=== PATIENT | male | born 1960 | race Caucasian/White ===

== ENCOUNTER 2020-04-09 18:00 | Emergency (ER) | payer OTHER ==
[~2020-04-09 18:00] MED LIST: AMBI5TAB PO; EFFE75CA2 PO; MOTR200T44 PO; MULT1TAB8 PO; POTA540T PO; VITA100067 PO; [UNRECOGNIZED DRUG - REMARK]
== END 2020-04-09 20:46 | disposition home or self-care (01) ==
LOC: M ED 18:00
DX: S61.210A Laceration without foreign body of right index finger without damage to nail, initial encounter (principal); W26.8XXA Contact with other sharp object(s), not elsewhere classified, initial encounter; Y92.090 Kitchen in other non-institutional residence as the place of occurrence of the external cause; K57.90 Diverticulosis of intestine, part unspecified, without perforation or abscess without bleeding; Z79.899 Other long term (current) drug therapy

== ENCOUNTER 2020-05-05 09:13 | Day surgery (SDC) | payer OTHER ==
[~2020-05-05] VITALS: Ht 180.3 cm; Wt 84.1 kg
[2020-05-05] MEDS ORDERED: MORPHINE 4 MG/ML 1ML VIAL/SYRINGE (J2270) IV ONE ×2 (09:30→10:00)
[2020-05-05] MEDS ORDERED: ONDANSETRON 4MG/2ML VIAL IV ONE (09:30)
[2020-05-05] MEDS ORDERED: ceFAZolin SOD 2 GM in IV 1 EA IV ONE ×2 (09:30→13:00)
[2020-05-05] MEDS ORDERED: NS 1,000 ML IV ONE (09:30)
--- NOTE | 2020-05-05 09:59 | REPVR ---
PROCEDURE INFORMATION: Exam: XR Left Hand Exam date and time: 05/05/2020 9:20 AM Age: 59 years old Clinical indication: Injury or trauma; Injury history: Table saw; Initial encounter; Amputation, traumatic; Hand; Left; Additional info: Digital amputation/trauma TECHNIQUE: Imaging protocol: XR Left hand. Views: 3 or more views. COMPARISON: None provided. FINDINGS: Bones/joints: The 1st finger has been amputated from the level of the mid shaft of the distal phalanx. Comminuted fracture is present at the base of the 2nd middle phalanx, which is anteriorly dislocated in relation to the proximal phalanx. The head of the 2nd proximal phalanx appears to be exposed to the skin, and is unclear whether there has been any osseous amputation of its distal-most aspect and/or of the base of the 2nd middle phalanx. Rounded metallic radiodensity at the 1st carpometacarpal joint is probably predating the trauma. There are degenerative changes at this joint. Soft tissues: In addition to the above changes of amputation, there is soft tissue swelling of the soft tissues over the 1st metacarpal, where there appears to be a 3 mm irregular foreign body radial to the metacarpal. IMPRESSION: 1. Amputation of the 1st finger from the level of the mid shaft of the distal phalanx. 2. Comminuted fracture at the base of the 2nd middle phalanx with anterior dislocation of the proximal interphalangeal joint. Apparent exposure of the 2nd proximal phalangeal head to the skin, unclear if any osseous amputation of its distal-most aspect and/or of the base of the 2nd middle phalanx. 3. Soft tissue swelling of the 1st metacarpal with an apparent irregular 3 mm foreign body. 4. Degenerative changes at the 1st carpometacarpal joint where a rounded metallic radiodensity is probably predating the trauma. Electronically signed by: Micheal Page On 05/05/2020 09:59:14 AM
[2020-05-05 10:03] LABS: BASO # 0.1 10^3/uL (0.0-0.2); BASO % 0.9 % (0.0-1.0); EOS # 0.2 10^3/uL (0.0-0.5); EOS % 2.6 % (0.0-3.0); HEMATOCRIT 45.1 % (42.0-52.0); HEMOGLOBIN 15.1 g/dl (13.5-17.5); LYMPH # 2.1 10^3/uL (1.5-5.0); LYMPH % 32.4 % (24.0-44.0); MEAN CORPUSCULAR HEMOGLOBIN 29.2 pg (27.0-33.0); MEAN CORPUSCULAR HGB CONC 33.5 g/dl (32.0-36.5); MEAN CORPUSCULAR VOLUME 87.2 fl (80.0-96.0); MONO # 0.7 10^3/uL (0.0-0.8); MONO % 10.7 % (0.0-5.0); NEUTROPHILS # 3.5 10^3/uL (1.5-8.5); NEUTROPHILS % 53.2 % (36.0-66.0); PLATELET COUNT, AUTOMATED 255 10^3/uL (150-450); RED BLOOD COUNT 5.17 10^6/uL (4.30-6.10); WHITE BLOOD COUNT 6.5 10^3/uL (4.0-10.0)
[2020-05-05 10:21] LABS: INR 0.94; PROTHROMBIN TIME 12.8 SECONDS (11.8-14.0)
[2020-05-05 10:22] LABS: PARTIAL THROMBOPLASTIN TIME 28.4 SECONDS (25.0-38.4)
[2020-05-05 10:25] LABS: BLOOD UREA NITROGEN 9 MG/DL (7-18); CALCIUM LEVEL 9.2 MG/DL (8.8-10.2); CARBON DIOXIDE LEVEL 23 MEQ/L (21-32); CHLORIDE LEVEL 106 MEQ/L (98-107); CREATININE FOR GFR 0.89 MG/DL (0.70-1.30); GLOMERULAR FILTRATION RATE > 60.0 (>49); GLUCOSE, FASTING 108 MG/DL (70-100); POTASSIUM SERUM 3.8 MEQ/L (3.5-5.1); SODIUM LEVEL 137 MEQ/L (136-145)
--- NOTE | 2020-05-05 11:12 | REPVR ---
PROCEDURE INFORMATION: Exam: XR Left Finger(s) Exam date and time: 05/05/2020 11:02 AM Age: 59 years old Clinical indication: Injury or trauma; Injury history: Laceration; Initial encounter; Left; Index finger; Additional info: Index finger injury TECHNIQUE: Imaging protocol: XR Left fingers. Views: Minimum 2 views. COMPARISON: CR Hand, complete LEFT 05/05/2020 9:28 AM FINDINGS: Bones/joints: Redemonstrated is evidence of posttraumatic amputation of the 1st finger from the level of the mid aspect of the distal phalanx. There appears to have been some interval soft tissue and possibly osseous debridement. There is also again acute comminuted fracture at the base of the 2nd middle phalanx, which is again anteriorly subluxed in relation to the proximal phalanx. The area is better visualized, and there has been no clear osseous amputation. There is again a rounded metallic density at the 1st carpometacarpal joint, with degenerative change here. Soft tissues: Previously suggested radiodensity in the soft tissues radial to the 1st metacarpal is no longer evident. There has been partial amputation of the soft tissues over the dorsal aspect of the 2nd finger at the level of the proximal interphalangeal joint. Multiple radiodensities in the region could represent posttraumatic foreign bodies and/or bandage material. IMPRESSION: Posttraumatic hand with probable interval debridement since earlier the same day. Electronically signed by: Micheal Page On 05/05/2020 11:11:30 AM
[2020-05-05] MEDS ORDERED: HYDROMORPHONE HCL 0.5 MG/ 0.5 ML SYRINGE (J1170 PER 1) IV PRN ×2 (11:15→14:45)
[2020-05-05] MEDS ORDERED: D31000TA2 PO (11:30)
[2020-05-05] MEDS ORDERED: COLE1TAB PO (11:30)
[2020-05-05] MEDS ORDERED: POTA10TA17 PO (11:30)
[2020-05-05] MEDS ORDERED: PANT-23 PO (11:30)
[2020-05-05] MEDS ORDERED: PERCOCET 5MG/325MG TAB As Ordered ONE (12:48)
[2020-05-05] MEDS ORDERED: MIDAZOLAM INJ 2MG/2ML VIAL (J2250 PER 1MG) As Ordered ONE (12:57)
[2020-05-05] MEDS ORDERED: propofoL 200 MG/20 ML VIAL As Ordered ONE (12:57)
[2020-05-05] MEDS ORDERED: LIDOCAINE 2% 100MG/5ML SDV (FOR ANES.) As Ordered ONE (12:58)
[2020-05-05] MEDS ORDERED: fentaNYL 100 MCG/2 ML INJECTION (J3010) As Ordered ONE ×2 (12:58→14:28)
[2020-05-05] MEDS ORDERED: ONDANSETRON 4MG/2ML VIAL As Ordered ONE (12:58)
[2020-05-05] MEDS ORDERED: dexameTHASONE 4 MG/ML 1ML VIAL (J1100 PER 1MG) As Ordered ONE (12:58)
[2020-05-05] MEDS ORDERED: CelecoXIB 400 MG CAP PO ONE ×2 (13:00→14:45)
[2020-05-05] MEDS ORDERED: PERCOCET 5MG/325MG TAB PO ONE (13:00)
[2020-05-05] MEDS ORDERED: PREGABALIN 50 MG CAP (LYRICA) PO ONE ×2 (13:00→14:45)
[2020-05-05] MEDS ORDERED: ceFAZolin 2 GM/D5W 50 ML IV BAG (J0690 PER 500MG) As Ordered ONE (13:02)
[2020-05-05] MEDS ORDERED: BUPIVACAINE/EPIN 0.25% 30 ML VIAL As Ordered ONE (13:02)
[2020-05-05] MEDS ORDERED: ceFAZolin 1GM VIAL (J0690 PER 500MG) As Ordered ONE (13:02)
[2020-05-05] MEDS ORDERED: ACETAMINOPHEN 1000MG 100ML IV BTL (OFIRMEV) (J0131 PER 10MG) As Ordered ONE (13:25)
[2020-05-05] MEDS ORDERED: KETOROLAC 60MG 2ML VIAL As Ordered ONE (13:29)
[2020-05-05] MEDS ORDERED: ePHEDrine SULFATE 25 MG/5 ML(5MG/ML) SYRINGE As Ordered ONE (13:31)
[2020-05-05] MEDS ORDERED: METOCLOPRAMIDE INJ 10MG/2ML VIAL (J2765 PER 1) As Ordered ONE (14:17)
[2020-05-05] MEDS ORDERED: oxyCODONE 5MG TAB As Ordered ONE (14:28)
[2020-05-05] MEDS: fentaNYL 100 MCG/2 ML INJECTION (J3010) IV PRN ×2 (14:30→14:36)
[2020-05-05 14:45] VITALS: BP 129/73
[2020-05-05] MEDS ORDERED: MORPHINE 2 MG/ML 1ML VIAL (J2270) IV PRN (14:45)
[2020-05-05] MEDS ORDERED: PERCOCET 5MG/325MG TAB PO PRN ×2 (14:45)
[2020-05-05] MEDS ORDERED: LR 1,000 ML IV SCH ×2 (14:45)
[2020-05-05] MEDS ORDERED: METOCLOPRAMIDE INJ 10MG/2ML VIAL (J2765 PER 1) IV PRN (14:45)
[2020-05-05] MEDS ORDERED: PROMETHAZINE INJ 25 MG/ML VIAL (J2550) IV PRN (14:45)
[2020-05-05] MEDS ORDERED: oxyCODONE 5MG TAB PO PRN (14:45)
[2020-05-05] MEDS ORDERED: ONDANSETRON 4MG/2ML VIAL IV PRN (14:45)
[2020-05-05] MEDS ORDERED: KEFL500C17 PO (15:05)
[2020-05-05] MEDS ORDERED: NAPR-837 PO (15:05)
--- NOTE | 2020-05-07 18:00 | ER ---
DATE OF CONSULTATION: 05/05/2020 CHIEF COMPLAINT: Left hand/fingers versus band saw. HISTORY OF PRESENT ILLNESS: This is a 59-year-old male who was operating a band saw this morning, last meal last night. His left nondominant upper extremity encountered the moving blade of the band saw and he sustained an injury. He had deformity and bleeding and was seen in the ER for further evaluation. X-rays revealed an amputation of the thumb and near amputation of the index finger with obliteration of the proximal interphalangeal joint. Orthopedics was consulted. MEDICAL HISTORY: Includes diverticulitis and gastroesophageal reflux. SURGICAL HISTORY: Includes bowel resection; thumb CMC arthroplasty in 2001 with Orthosphere on that left side. SOCIAL HISTORY: Does not smoke, not drinking today. Lives locally. Employed by [employer]. ALLERGIES: NO KNOWN DRUG ALLERGIES. REVIEW OF SYSTEMS: He is only complaining of left hand injury. 12 areas other than that are negative. PHYSICAL EXAMINATION: He is alert, oriented and cooperative. Mood and affect are appropriate. He appears to be his stated vintage with healthy skin, face, upper and lower extremities except for the left hand. He is not short of breath, no cough or evidence of respiratory tract infection. The abdomen is soft, not distended, no obesity. The left upper extremity he has injury which is near circumferential through the proximal interphalangeal although the tuft of the index finger is still pink with some elements of reported sensation, certainly cannot move it. Thumb: Oblique laceration extends through the pulp and nika the thumbnail and nailbed off and extends towards the base of the phalanx dorsal aspect. Palpable pulse. Other fingers appear to be uninvolved. IMPRESSION: Near amputation of the index finger; distal tuft amputation of the thumb. RECOMMENDATIONS: I talked frankly with the patient about management of this issue. We talked about proximal interphalangeal joint fusion. We talked about second opinions with a hand surgeon and in fact I reached out to [facility] and discussed the case with Dr. Tez Aly a hand surgeon. The conclusion is that the patient could expect quicker recovery and likely a better level of function with an amputation through the PIP joint. Also revision of the thumb amputation. I explained the concept of secondary closure, to some degree there will some secondary closure here of both wounds. The patient elects for amputation through the PIP joint of the index finger and revision of the thumb amputation. We completed the preoperative pack including short form H&P and has been sent back and I coordinated with the ER personnel as well as the OR personnel and anesthesia. Because he is NPO we will go promptly. JEFFREY
--- NOTE | 2020-05-12 12:30 | RO ---
DATE OF OPERATION: 05/05/2020 PREOPERATIVE DIAGNOSIS: Traumatic partial amputation through the proximal interphalangeal joint of the index finger and near amputation through the distal phalanx of the thumb. POSTOPERATIVE DIAGNOSIS: Traumatic partial amputation through the proximal interphalangeal joint of the index finger and near amputation through the distal phalanx of the thumb. PROCEDURE: Amputation through the proximal interphalangeal joint of index finger with direct closure and amputation through the distal interphalangeal joint of the thumb with direct closure. SURGEON: Torres Maurer MD MARKETING OPERATIONS MANAGER: ANESTHESIA: Dr. Marley ESTIMATED BLOOD LOSS: Less than 15 mL. No tourniquet inflated. INDICATIONS: Thumb and index finger versus band saw; patient elects for operative intervention. Consent reviewed in detail including a rachna discussion of the pathology involved, procedure performed, alternatives including doing nothing or opinions of a hand sub-specialist. The patient agrees to this surgery. OPERATIVE COURSE: Identified in the holding area. Site and side verified. Brought to the operating room. Once anesthesia was administered, timeout was accomplished. Prepped and draped in the usual fashion. Next, I irrigated and cleansed the wounds using saline solution and a 4x4 sponge. Next, once this was accomplished, I freshened the wound edges at the thumb and at the index finger, I appreciated that the laceration was near circumferential. I completed the near circumferential laceration. I cut through the flexor tendon, which was still intact. I observed one digital nerve and implemented a neurectomy there. I ronguered back the condyles of the proximal phalanx to allow some approximation. Next, I reapproximated the volar flap across the condyles and was able to loosely reapproximate. This was accomplished with 3-0 nylon. Next, at the thumb I did debride back the exposed tip of the phalanx using Gavin-Rapp's. I was then able to reapproximate partially the tissue on the thumb. I was not able to completely close and some will need to be closing by secondary intent. Next, an irrigation was accomplished. Wounds were dressed with adaptic, 4x4s, Aure and Kerlix. The patient was extubated, moved to the recovery room in good condition. Of note, the patient received cephalosporin antibiotics prior to the surgery. JEFFREY
== END 2020-05-05 15:25 | disposition home or self-care (01) ==
LOC: M ED 09:13 → M SDC 11:31
PROVIDERS: ATTEND Orthopaedic Surgery
DX: S68.52 Partial traumatic transphalangeal amputation of thumb (principal); S68.621A Partial traumatic transphalangeal amputation of left index finger, initial encounter; W31.2XXA Contact with powered woodworking and forming machines, initial encounter; Y92.89 Other specified places as the place of occurrence of the external cause; Y93.9 Activity, unspecified; Y99.9 Unspecified external cause status; K21.9 Gastro-esophageal reflux disease without esophagitis; K57.92 Diverticulitis of intestine, part unspecified, without perforation or abscess without bleeding; I10 Essential (primary) hypertension; Z87.891 Personal history of nicotine dependence; Z79.899 Other long term (current) drug therapy
CPT/HCPCS: 26951; 73130; 73140; 80048; 85025; 85610; 85730; 86850; 86900; 86901; 88305; 96361; 96365; 96375; 96376; 99284; J0131; J0690; J1100; J1170; J1885; J2250; J2270; J2405; J2765; J3010; U0002

== ENCOUNTER 2020-09-12 09:54 | Emergency (ER) | payer OTHER ==
[~2020-09-12] VITALS: Ht 180.3 cm; Wt 86.6 kg
[~2020-09-12 09:54] MED LIST changes: +COLE1TAB PO; +D31000TA2 PO; +KEFL500C17 PO; +NAPR-837 PO; +PANT-23 PO; +POTA10TA17 PO
--- OUTSIDE RECORDS SUMMARY | 2020-09-12 10:00 | CCD | Continuity of Care Document ---
Author Author Abdirashid WRIGHT MD Organization Unknown Address [address] [place] [address] Phone [phone] Care Team Providers Care Air Pollution Analyst Name Role Phone Noble Plaza MD [facility] [phone] Problems Description No Information Available Social History Type Date Description Comments Sex Unknown Tobacco Use Start: Unknown Denies Smoking Allergies, Adverse Reactions, Alerts Description No Known Drug Allergies Medications Active Medications SIG Qnty Indications Ordering Provide r Date Omeprazole 20mg Capsules DR Silva History Medications Gabapentin 100mg Capsules 1-2 by mouth three times a day 90caps S68.522D Torres Wright MD 05/19/2020 - 07/29/2020 Naproxen 500mg Tablets 1 by mouth twice a day 60tabs Torers Wright MD 05/19/2020 - 07/29/2020 Hydrocodone-Acetaminophen 5-325mg Tablets 1-2 tabs by mouth every 4 to 6 hours as needed 30tabs Handy Wright MD 05/14/2020 - 05/25/2020 No Active Medications Unknown 05/2020 - 05/14/2020 Immunizations Description No Information Available Vital Signs Date Vital Result Comment 06/16/2020 3:15pm Body Temperature 97.1 F Results Test Acquired Date Facility Test Result H/L Range Note Laboratory test finding 05/05/2020 [facility] [address] [place] [address] (315)- - Pathology Request For Service (SEE NOTE) 1 Laboratory test finding 05/05/2020 [facility] [address] [place] [address] (315)- - Sars Covid-19 Amplification NEGATIVE Normal Negative 2 1 FINAL DIAGNOSIS Submitted as "portion of left index finger and thumb", amputation: Benign skin and soft tissue. Bone with degenerative changes. Negative for malignancy 05/07/2020 - 1540 CLINICAL DIAGNOSIS Partial amputation of left index distal phalanx and thumb 05/06/2020 - 1512 GROSS DIAGNOSIS Received in formalin labeled "portion of left index finger and thumb" consists of fragments of thumb and fragments of tissue measuring 6.5 x 2.5 x 2 cm. Technical Sales Manager sections are submitted in two after decalcification. -OA 05/07/2020 - 1534 Signed CECILE BRANTLEY MD 05/07/2020 1540 2 A false negative result may occur if a specimen is improperly collected, transported or handled. False negative results may also occur if inadequate numbers of organisms are present in the specimen. As with any molecular test, mutations within the target regions of [employer] SARS-CoV-2 could affect primer and/or probe binding resulting in failure to detect the presence of virus. This test cannot rule out diseases caused by other bacterial or viral pathogens. DISCLAIMER: Testing was performed using the [employer] SARS-CoV-2 test. This test was developed and its performance characteristics determined by [employer]. This test has not been FDA cleared or approved. This test has been authorized by FDA under an Emergency Use Authorization (EUA). This test is only authorized for the duration of time the declaration that circumstances exist justifying the authorization of the emergency use of in vitro diagnostic tests for detection of SARS-CoV-2 virus and/or diagnosis of COVID-19 infection under section 564(b)(1) of the Act, 21 U.S.C. 360bbb-3(b)(1), unless the authorization is terminated or revoked sooner. Procedures Date Code Description Status 05/05/2020 54575 Amputation Metacarpal Finger/Yuni mb Any JT Inc Neurectomies Completed 05/05/2020 82022 Amputation Metacarpal Finger/Yuni mb Any JT Inc Neurectomies Completed Medical Devices Description No Information Available Encounters Type Date Location Provider Dx Diagnosis Office Visit 06/16/2020 3:00p [place] Torres Wright MD 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, subs S68.621D Partial traumatic trnsphal a mputation of l idx fngr, subs Office Visit 05/26/2020 2:30p [place] Torres Wright MD 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, subs S68.621D Partial traumatic trnsphal a mputation of l idx fngr, subs Office Visit 05/19/2020 4:45p [place] Torres Wright MD 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, subs S68.621D Partial traumatic trnsphal a mputation of l idx fngr, subs Office Visit 05/14/2020 10:30a [place] Ritika Nam PA-C S6 8.522D Partial traumatic trnsphal amputation of left thumb, subs S68.621D Partial traumatic trnsphal a mputation of l idx fngr, subs Office Visit 05/08/2020 4:00p [place] Torres Wright MD 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, subs S68.621D Partial traumatic trnsphal a mputation of l idx fngr, subs Assessments Date Code Description Provider 07/30/2020 S68.522D Partial traumatic tr ansphalangeal amputation of left thumb, subsequent encounter Torres Wright MD 07/30/2020 S68.621D Partial traumatic tr ansphalangeal amputation of left index finger, subsequent encounter Torres Wright MD 06/16/2020 S68.522D Partial traumatic tr ansphalangeal amputation of left thumb, subsequent encounter Torres Wright MD 06/16/2020 S68.621D Partial traumatic tr ansphalangeal amputation of left index finger, subsequent encounter Torres Wright MD 05/26/2020 S68.522D Partial traumatic tr ansphalangeal amputation of left thumb, subsequent encounter Torres Wright MD 05/26/2020 S68.621D Partial traumatic tr ansphalangeal amputation of left index finger, subsequent encounter Torres Wright MD 05/19/2020 S68.522D Partial traumatic tr ansphalangeal amputation of left thumb, subsequent encounter Torres Wright MD 05/19/2020 S68.621D Partial traumatic tr ansphalangeal amputation of left index finger, subsequent encounter Torres Wright MD 05/14/2020 S68.522D Partial traumatic tr ansphalangeal amputation of left thumb, subsequent encounter Ritika Nam PA-C 05/14/2020 S68.621D Partial traumatic tr ansphalangeal amputation of left index finger, subsequent encounter Ritika Nam PA-C 05/08/2020 S68.522D Partial traumatic tr ansphalangeal amputation of left thumb, subsequent encounter Torres Wright MD 05/08/2020 S68.621D Partial traumatic tr ansphalangeal amputation of left index finger, subsequent encounter Torres Wrgiht MD 05/05/2020 S68.522A Partial traumatic tr ansphalangeal amputation of left thumb, initial encounter Torres Wright MD 05/05/2020 S68.621A Partial traumatic tr ansphalangeal amputation of left index finger, initial encounter Torres Wright MD Plan of Treatment 07/30/2020 - Torres Wright MD* S68.522D Partial traumatic transphalangeal amputation of left thumb, subsequent encounter* New Orders:* Surgery, Ordered: 07/30/20 * Follow up:* post op with a PA per [facility] * S68.621D Partial traumatic transphalangeal amputation of left index finger, subsequent encounter Functional Status Description No Information Available Mental Status Description No Information Available Referrals Description No Information Available
--- OUTSIDE RECORDS SUMMARY | 2020-09-12 10:00 | CCD | Continuity of Care Document ---
Author Author Abdirashid WRIGHT MD Organization Unknown Address [address] [place] [address] Phone [phone] Care Team Providers Care Store Cashier Name Role Phone Noble Plaza MD [facility] [phone] Problems Description No Information Available Social History Type Date Description Comments Sex Unknown Tobacco Use Start: Unknown Denies Smoking Allergies, Adverse Reactions, Alerts Description No Known Drug Allergies Medications Active Medications SIG Qnty Indications Ordering Provide r Date Gabapentin 100mg Capsules 1-2 by mouth three times a day 90caps S68.522D Torres Wright MD 05/19/2020 Naproxen 500mg Tablets 1 by mouth twice a day 60tabs Torres Wright MD 05/19/2020 History Medications Hydrocodone-Acetaminophen 5-325mg Tablets 1-2 tabs by mouth every 4 to 6 hours as needed 30tabs B aniya Wright MD 05/14/2020 - 05/25/2020 No Active Medications Unknown 05/2020 - 05/14/2020 Immunizations Description No Information Available Vital Signs Date Vital Result Comment 06/16/2020 3:15pm Body Temperature 97.1 F Results Test Acquired Date Facility Test Result H/L Range Note Laboratory test finding 05/05/2020 [facility] [address] [place] [address] (315)- - Pathology Request For Service (SEE NOTE) 1 Laboratory test finding 05/05/2020 [facility] [address] [place] [address] (315)- - Sars Covid-19 Amplification NEGATIVE Normal [...] measuring 6.5 x 2.5 x 2 cm. Recovery Engineer sections are submitted in two after decalcification. [...] pathogens. DISCLAIMER: Testing was performed using the [employer] SARS-CoV-2 test. This test was developed and its performance characteristics determined by [employer]. This test has not been FDA cleared [...] sooner. Procedures Date Code Description Status 05/05/2020 32197 Amputation Metacarpal Finger/Yuni mb Any JT Inc Neurectomies Completed 05/05/2020 70386 Amputation Metacarpal Finger/Yuni mb Any JT Inc Neurectomies Completed Medical Devices Description No Information Available Encounters Type Date Location Provider Dx Diagnosis Office Visit 05/26/2020 2:30p [place] Wright MD 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, subs S68.621D Partial traumatic trnsphal a mputation of l idx fngr, subs Office Visit 05/19/2020 4:45p [place] MD 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, subs S68.621D Partial traumatic trnsphal a mputation of l idx fngr, subs Office Visit 05/14/2020 10:30a [place] Ritika Nam PA-C S6 8.522D Partial traumatic trnsphal amputation of left thumb, subs S68.621D Partial traumatic trnsphal a mputation of l idx fngr, subs Office Visit 05/08/2020 4:00p [place] Torres Wright MD 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, subs S68.621D Partial traumatic trnsphal a mputation of l idx fngr, subs Assessments Date Code Description Provider 06/16/2020 S68.522D Partial traumatic tr ansphalangeal amputation [...] index finger, subsequent encounter Torres Wright MD 05/05/2020 S68.522A Partial traumatic tr ansphalangeal amputation of left thumb, initial encounter Torres Wright MD 05/05/2020 S68.621A Partial traumatic tr ansphalangeal amputation of left index finger, initial encounter Torres Wright MD Plan of Treatment 06/16/2020 - Torres Wright MD* S68.522D Partial traumatic transphalangeal amputation of left thumb, subsequent encounter* Follow up:* prn * S68.621D Partial traumatic transphalangeal amputation of left index finger, subsequent encounter Functional Status Description No Information Available Mental Status Description No Information Available Referrals Description No Information Available
--- OUTSIDE RECORDS SUMMARY | 2020-09-12 10:00 | CCD | Continuity of Care Document ---
Author Author Abdirashid WRIGHT MD Organization Unknown Address [address] [place] [address] Phone [phone] Care Team Providers Care Program Paraprofessional Name Role Phone Noble Plaza MD [facility] [phone] Problems Description No Information Available Social History [...] H/L Range Note Laboratory test finding 05/05/2020 [facility] [address] [place] [address] (315)- - Pathology Request For Service (SEE NOTE) 1 Laboratory test finding 05/05/2020 [facility] [address] [place] [address] (315)- - Sars Covid-19 Amplification NEGATIVE Normal [...] measuring 6.5 x 2.5 x 2 cm. Pantry Chef sections are submitted in two after decalcification. [...] pathogens. DISCLAIMER: Testing was performed using the [employer] SARS-CoV-2 test. This test was developed and its performance characteristics determined by [employer]. This test has not been FDA cleared [...] sooner. Procedures Date Code Description Status 05/05/2020 16068 Amputation Metacarpal Finger/Yuni mb Any JT Inc Neurectomies Completed 05/05/2020 34991 Amputation Metacarpal Finger/Yuni mb Any JT Inc Neurectomies Completed Medical Devices Description No Information Available Encounters Type Date Location Provider Dx Diagnosis Office Visit 06/16/2020 3:00p [place] Wright MD 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, subs S68.621D Partial traumatic trnsphal a mputation of l idx fngr, subs Office Visit 05/26/2020 2:30p [place] Wright MD 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, subs S68.621D Partial traumatic trnsphal a mputation of l idx fngr, subs Office Visit 05/19/2020 4:45p [place] Wright MD 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, subs S68.621D Partial traumatic trnsphal a mputation of l idx fngr, subs Office Visit 05/14/2020 10:30a [place] Ritika Nam PA-C S6 8.522D Partial traumatic trnsphal amputation of left thumb, subs S68.621D Partial traumatic trnsphal a mputation of l idx fngr, subs Office Visit 05/08/2020 4:00p [place] Torrse Wright MD S68.522D Partial traumatic trnsphal amputation [...]
--- OUTSIDE RECORDS SUMMARY | 2020-09-12 10:00 | CCD | Continuity of Care Document ---
Author Author Abdirashid WRIGHT MD Organization Unknown Address [address] [place] [id number] Phone [phone] Care Team Providers Care Trust Operations Assistant Name Role Phone [place] MD [facility] [phone] Problems Description No Information Available Social History [...] a day 60tabs Torres Wright MD 05/19/2020 - 07/29/2020 Hydrocodone-Acetaminophen 5-325mg Tablets 1-2 tabs by mouth every 4 to 6 hours as needed 30tabs B aniya Wright MD 05/14/2020 - 05/25/2020 No Active Medications Unknown 05/2020 - 05/14/2020 Immunizations Description No Information Available Vital Signs Date Vital Result Comment 07/30/2020 10:09am Height 71 inches 5'11" Weight 185.00 lb BMI (Body Mass Index) 25.8 kg/m2 06/16/2020 3:15pm Body Temperature 97.1 F Results Test Acquired Date Facility Test Result H/L Range Note Laboratory test finding 05/05/2020 [facility] [address] [place] [address] [phone] Pathology Request For Service (SEE NOTE) 1 Laboratory test finding 05/05/2020 [facility] [address] [place] [address] [phone] - Sars Covid-19 Amplification NEGATIVE Normal [...] measuring 6.5 x 2.5 x 2 cm. Smokehouse Operator sections are submitted in two after decalcification. [...] pathogens. DISCLAIMER: Testing was performed using the [employer] SARS-CoV-2 test. This test was developed and its performance characteristics determined by [employer]. This test has not been FDA cleared [...] sooner. 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, subs S68.621D Partial traumatic trnsphal a mputation of l idx fngr, subs Office Visit 05/26/2020 2:30p [place] Torres Wright MD 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, subs S68.621D Partial traumatic trnsphal a mputation of l idx fngr, subs Office Visit 05/19/2020 4:45p [place] Torres Wright MD 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, subs S68.621D Partial traumatic trnsphal a mputation of l idx fngr, subs Office Visit 05/14/2020 10:30a [place] Ritika Nam PA-C S6 8.522D Partial traumatic trnsphal amputation of left thumb, subs S68.621D Partial traumatic trnsphal a mputation of l idx fngr, subs Office Visit 05/08/2020 4:00p [place] Torres Wright MD 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
--- OUTSIDE RECORDS SUMMARY | 2020-09-12 10:00 | CCD ---
Author Author [facility] Organization [facility] Address Unknown Phone Unavailable Care Team Providers Care Emergency Registrar Name Role Phone Valerie Nam PA Unavailable Unavailable Nam, M Barratt PA Unavailable Unavailable Nam, M Barratt PA Unavailable Unavailable Nam, M Barratt PA Unavailable Unavailable Nam, M Barratt PA Unavailable Unavailable Nam, M Barratt PA Unavailable Unavailable Nam, M Barratt PA Unavailable Unavailable Nam, M Barratt PA Unavailable Unavailable Nam, M Barratt PA Unavailable Unavailable Nam, M Barratt PA Unavailable Unavailable Nam, M Barratt PA Unavailable Unavailable Nam, M Barratt PA Unavailable Unavailable Nam, M Barratt PA Unavailable Unavailable Nam, M Barratt PA Unavailable Unavailable Nam, M Barratt PA Unavailable Unavailable Nam, M Barratt PA Unavailable Unavailable Nam, M Barratt PA Unavailable Unavailable Nam, M Barratt PA Unavailable Unavailable Nam, M Barratt PA Unavailable Unavailable Nam, M Barratt PA Unavailable Unavailable Nam, M Barratt PA Unavailable Unavailable Nam, M Barratt PA Unavailable Unavailable Nam, M Barratt PA Unavailable Unavailable Nam, M Barratt PA Unavailable Unavailable Nam, M Barratt PA Unavailable Unavailable Nam, M Barratt PA Unavailable Unavailable Goldie Maurer MD Unavailable Unavailable Goldie Maurer MD Unavailable Unavailable Goldie Maurer MD Unavailable Unavailable Goldie Maurer MD Unavailable Unavailable Goldie Maurer MD Unavailable Unavailable Goldie Maurer MD Unavailable Unavailable Goldie Maurer MD Unavailable Unavailable Glodie Maurer MD Unavailable Unavailable Goldie Maurer MD Unavailable Unavailable Goldie Maurer MD Unavailable Unavailable Goldie Maurer MD Unavailable Unavailable Goldie Maurer MD Unavailable Unavailable Goldie Maurer MD Unavailable Unavailable Goldie Maurer MD Unavailable Unavailable Maurer, L Torres MD Unavailable Unavailable Maurer, L Torres MD Unavailable Unavailable Maurer, L Torres MD Unavailable Unavailable Maurer, L Torres MD Unavailable Unavailable Maurer, L Torres MD Unavailable Unavailable Maurer, L Torres MD Unavailable Unavailable Maurer, L Torres MD Unavailable Unavailable Maurer, L Torres MD Unavailable Unavailable Maurer, L Torres MD Unavailable Unavailable Maurer, L Torres MD Unavailable Unavailable Maurer, L Torres MD Unavailable Unavailable Maurer, L Torres MD Unavailable Unavailable Maurer, L Torres MD Unavailable Unavailable Maurer, L Torres MD Unavailable Unavailable Maurer, L Torres MD Unavailable Unavailable Maurer, L Torres MD Unavailable Unavailable Maurer, L Torres MD Unavailable Unavailable Maurer, L Torres MD Unavailable Unavailable Maurer, L Torres MD Unavailable Unavailable Maurer, L Torres MD Unavailable Unavailable Maurer, L Torres MD Unavailable Unavailable Maurer, L Torres MD Unavailable Unavailable Maurer, L Torres MD Unavailable Unavailable Maurer, L Torres MD Unavailable Unavailable Maurer, L Torres MD Unavailable Unavailable Maurer, L Torres MD Unavailable Unavailable Maurer, L Torres MD Unavailable Unavailable Maurer, L Torres MD Unavailable Unavailable Maurer, L Torres MD Unavailable Unavailable Maurer, L Torres MD Unavailable Unavailable Maurer, L Torres MD Unavailable Unavailable Maurer, L Torres MD Unavailable Unavailable Maurer, L Torres MD Unavailable Unavailable Re-disclosure Warning The records that you are about to access may contain information from federally-assisted alcohol or drug abuse programs. If such information is present, then the following federally mandated warning applies: This information has been disclosed to you from records protected by federal confidentiality rules (42 CFR part 2). The federal rules prohibit you from making any further disclosure of this information unless further disclosure is expressly permitted by the written consent of the person to whom it pertains or as otherwise permitted by 42 CFR part 2. A general authorization for the release of medical or other information is NOT sufficient for this purpose. The Federal rules restrict any use of the information to criminally investigate or prosecute any alcohol or drug abuse patient.The records that you are about to access may contain highly sensitive health information, the redisclosure of which is protected by Article 27-F of the [facility] Public Health law. If you continue you may have access to information: Regarding HIV / AIDS; Provided by facilities licensed or operated by the [facility] Office of Mental Health; or Provided by the [facility] Office for People With Developmental Disabilities. If such information is present, then the following [facility] mandated warning applies: This information has been disclosed to you from confidential records which are protected by state law. State law prohibits you from making any further disclosure of this information without the specific written consent of the person to whom it pertains, or as otherwise permitted by law. Any unauthorized further disclosure in violation of state law may result in a fine or half-way sentence or both. A general authorization for the release of medical or other information is NOT sufficient authorization for further disc losure. Family History Family Member Name Family Member Gender Family Member Status Date o f Status Description Data Source(s) Unknown Male Problem [facility] ([facility]) Encounters Encounter Providers Location Date Indications Data Source(s ) Office Visit Attender: Torres Maurer MD Physical Therapy 2019 08:00:00 AM EST [facility] ([facility]) Office Visit Attender: Torres Maurer MD Physical Therapy 2019 03:00:00 PM EDT [facility] ([facility]) Office Visit Attender: Torres Maurer MD Physical Therapy 2019 02:30:00 PM EDT [facility] ([facility]) Office Visit Attender: Torres Maurer MD Physical Therapy 2019 04:45:00 PM EDT [facility] ([facility]) Office Visit Attender: Ritika SINGH Physical Therapy 10:30:00 AM EDT [facility] ([facility]) Office Visit Attender: Torres Maurer MD Physical Therapy 2019 04:00:00 PM EDT [facility] ([facility]) Medications Medication Brand Name Start Date Product Form Dose Route Admi nistrative Instructions Pharmacy Instructions Status Indications Reaction Description Data Source(s) 100 mg 05/19/2020 12:00:00 AM EDT capsule 90 TAKE 1-2 CAPSULES BY MOUTH THREE TIMES A DAY MAXIMUM DAILY DOSE = 3 CAPSULES TAKE 1-2 CAPSULES BY MOUTH THREE TIMES A DAY MAXIMUM DAILY DOSE = 3 CAPSULES SOLD: 05/19/2020 [facility] gabapentin 100 MG Oral Capsule Gabapentin 05/19/2020 12:00:00 AM EDT ORAL completed [facility] ([facility] ) Naproxen 500 MG Oral Tablet Naproxen 05/19/2020 12:00:00 AM EDT ORAL completed [facility] ([facility]) Acetaminophen 325 MG / Hydrocodone Bitartrate 5 MG Ora l Tablet Hydrocodone-Acetaminophen 05/14/2020 12:00:00 AM EDT ORAL completed [facility] ([facility]) 5-325 mg 05/14/2020 12:00:00 AM EDT tablet 30 TAKE 1-2 TABLETS BY MOUTH EVERY 4-6 HOURS NEEDED MAXIMUM DAILY DOSE = 5 TAKE 1-2 TABLETS BY MOUTH EVERY 4-6 HOURS NEEDED MAXIMUM DAILY DOSE = 5 SOLD: 05/14/2020 [facility] No Active Medications 05/08/2020 12:00:00 AM EDT completed [facility] ([facility]) 500 mg 05/05/2020 12:00:00 AM EDT tablet 30 TAKE ONE TABLET BY MOUTH TWICE A DAY WITH FOOD TAKE ONE TABLET BY MOUTH TWICE A DAY WITH FOOD SOLD: 05/05/2020 [facility] Cephalexin 500 MG Oral Capsule CEPHALEXIN 05/05/2020 12:00:00 AM EDT capsule 20 TAKE ONE CAPSULE BY MOUTH FOUR TIMES A DAY FOR 5 DAYS TAKE ONE CAPSULE BY MOUTH FOUR TIMES A DAY FOR 5 DAYS SOLD: 05/05/2020 [facility] Insurance Providers Payer name Policy type / Coverage type Policy ID Covered republican ID Covered republican's relationship to mcmillan Policy Mcmillan Plan Information [facility] HUMANA [id number] SP [id number] HUMANA [facility] O [id number] S [id number] [facility] [id number] SP [id number] [facility] Health Maintenance Organization (HMO) [id number] Self [id number] [facility] [id number] S [id number] [facility] [id number] [facility] [id number] Surgeries/Procedures Procedure Description Date Indications Data Source(s) AMP F/TH 1/2 JT/PHALANX W/NEURECT W/DIR CLSR 0 12:00:00 AM EDT [facility] ([facility]) AMP F/TH 1/2 JT/PHALANX W/NEURECT W/DIR CLSR 0 12:00:00 AM EDT [facility] ([facility]) Results ID Date Data Source [id number] 05/05/2020 01:44:00 PM EDT [facility] ([facility]) Name Value Range Interpretation Code Description Data Ngozi rce(s) Supporting Document(s) Surgical pathology study Laboratory test result [facility] ([facility]) FINAL DIAGNOSIS Submitted as "portion of left [...] measuring 6.5 x 2.5 x 2 cm. Operations Intern sections are submitted in two after decalcification. -OA 05/07/2020 - 1534 Signed CECILE BRANTLEY MD 05/07/2020 1540 ID Date Data Source [id number] 05/05/2020 11:27:00 AM EDT [facility] ([facility]) Name Value Range Interpretation Code Description Data Ngozi rce(s) Supporting Document(s) Laboratory test finding (navigational concept) Laboratory test result [facility] A false negative result may occur if a s pecimen is improperly collected, transported or handled. False [...] pathogens. DISCLAIMER: Testing was performed using the [employer] SARS-CoV-2 test. This test was developed and its performance characteristics determined by [employer]. This test has not been FDA cleared [...] the authorization is terminated or revoked sooner. Procedure Vital Signs ID Date Data Source UNK Name Value Range Interpretation Code Description Data Source(s) Body mass index (BMI) [Ratio] 25.8 kg/m2 25.8 k g/m2 [facility] ([facility]) Body weight 185.00 [lb_av] 185.00 [lb_av] [facility] T ([facility]) Body height 71 [in_i] 71 [in_i] [facility] 5'11" Body temperature 97.1 [degF] 97.1 [degF] [facility] ([facility])
--- OUTSIDE RECORDS SUMMARY | 2020-09-12 10:34 | CCD ---
Author Author [facility] Organization [facility] Address Unknown Phone Unavailable Care Team Providers Care Aggregate Conveyor Operator Name Role Phone Valerie Nam PA Unavailable [...] is protected by Article 27-F of the [facility] Public Health law. If you continue you may have access to information: Regarding HIV / AIDS; Provided by facilities licensed or operated by the [facility] Office of Mental Health; or Provided by the [facility] Office for People With Developmental Disabilities. If such information is present, then the following [facility] mandated warning applies: This information has been [...] law may result in a fine or retirement sentence or both. A general authorization for the release of medical or other information is NOT sufficient authorization for further disc losure. Family History Family Member Name Family Member Gender Family Member Status Date o f Status Description Data Source(s) Unknown Male Problem [facility] ([facility]) Encounters Encounter Providers Location Date Indications Data Source(s ) Office Visit Attender: Torres Maurer MD Physical Therapy 2019 08:00:00 AM EST [facility] ([facility]) Office Visit Attender: Torres Maurer MD Physical Therapy 2019 03:00:00 PM EDT [facility] ([facility]) Office Visit Attender: Torrse Maurer MD Physical Therapy 2019 02:30:00 PM EDT [facility] ([facility]) Office Visit Attender: Torres Maurer MD Physical Therapy 2019 04:45:00 PM EDT [facility] ([facility]) Office Visit Attender: Ritika SINGH Physical Therapy 10:30:00 AM EDT [facility] ([facility]) Office Visit Attender: Torres Maurer MD Physical Therapy 2019 04:00:00 PM EDT [facility] ([facility]) Medications Medication Brand Name [...] 05/19/2020 12:00:00 AM EDT ORAL completed [facility] ([facility] ) Naproxen 500 MG Oral Tablet Naproxen 05/19/2020 12:00:00 AM EDT ORAL completed [facility] ([facility]) Acetaminophen 325 MG / Hydrocodone Bitartrate 5 MG Ora l Tablet Hydrocodone-Acetaminophen 05/14/2020 12:00:00 AM EDT ORAL completed [facility] ([facility]) 5-325 mg 05/14/2020 12:00:00 AM EDT tablet 30 TAKE 1-2 TABLETS BY MOUTH EVERY 4-6 HOURS NEEDED MAXIMUM DAILY DOSE = 5 TAKE 1-2 TABLETS BY MOUTH EVERY 4-6 HOURS NEEDED MAXIMUM DAILY DOSE = 5 SOLD: 05/14/2020 [facility] No Active Medications 05/08/2020 12:00:00 AM EDT completed [facility] ([facility]) 500 mg 05/05/2020 12:00:00 AM [...] A DAY FOR 5 DAYS SOLD: 05/05/2020 [facility] Insurance Providers Payer name Policy type / Coverage type Policy ID Covered constitution party ID Covered constitution party's relationship to mcmillan Policy Mcmillan Plan Information [facility] HUMANA [id number] SP [id number] HUMANA [facility] O [id number] S [id number] [facility] [id number] SP [id number] [facility] Health Maintenance Organization (HMO) [id number] Self [id number] [facility] [id number] S [id number] [facility] [id number] [facility] [id number] Surgeries/Procedures Procedure Description Date Indications Data Source(s) AMP F/TH 1/2 JT/PHALANX W/NEURECT W/DIR CLSR 0 12:00:00 AM EDT [facility] ([facility]) AMP F/TH 1/2 JT/PHALANX W/NEURECT W/DIR CLSR 0 12:00:00 AM EDT [facility] ([facility]) Results ID Date Data Source [id number] 05/05/2020 01:44:00 PM EDT [facility] ([facility]) Name Value Range Interpretation Code Description Data Ngozi rce(s) Supporting Document(s) Surgical pathology study Laboratory test result [facility] ([facility]) FINAL DIAGNOSIS Submitted as "portion of [...] measuring 6.5 x 2.5 x 2 cm. Clinical Services Specialist sections are submitted in two after decalcification. -OA 05/07/2020 - 1534 Signed CECILE BRANTLEY MD 05/07/2020 1540 ID Date Data Source [id number] 05/05/2020 11:27:00 AM EDT [facility] ([facility]) Name Value Range Interpretation Code Description Data Ngozi rce(s) Supporting Document(s) Laboratory test finding (navigational concept) Laboratory test result [facility] ([facility]) A false negative result may occur [...] pathogens. DISCLAIMER: Testing was performed using the [employer] SARS-CoV-2 test. This test was developed and its performance characteristics determined by [employer]. This test has not been FDA cleared [...] [Ratio] 25.8 kg/m2 25.8 k g/m2 [facility] ([facility]) Body weight 185.00 [lb_av] 185.00 [lb_av] ALLAEN T ([facility]) Body height 71 [in_i] 71 [in_i] [facility] ([facility]) 5'11" Body temperature 97.1 [degF] 97.1 [degF] [facility] ([facility])
[2020-09-12] MEDS ORDERED: LIDOCAINE W/EPINEPHRINE 1% 20ML VIAL SC ONE (11:00)
[2020-09-12 11:18] VITALS: BP 139/90
== END 2020-09-12 11:22 | disposition home or self-care (01) ==
LOC: M ED 09:54
DX: S51.812A Laceration without foreign body of left forearm, initial encounter (principal); W26.8XXA Contact with other sharp object(s), not elsewhere classified, initial encounter; Y92.018 Other place in single-family (private) house as the place of occurrence of the external cause; I10 Essential (primary) hypertension; Z87.09 Personal history of other diseases of the respiratory system; Z79.899 Other long term (current) drug therapy

== ENCOUNTER → 2020-09-22 | Outpatient (CLI) | payer OTHER ==
--- NOTE | 2020-09-22 09:29 | ECGEPIP ---
[facility] Test Date: 2020-09-22 Pat Name: MASON CABELLO Department: Room: - Gender: Male Senior Partner: RF : [id number] Requested By: Torres Amezcua Order Number: [id number] Reading MD: Edi Braxton Measurements Intervals [place] Rate: 76 P: 38 AK: 156 QRS: 27 QRSD: 88 T: 25 QT: 353 QTc: 399 Interpretive Statements Normal sinus rhythm LA conduction disturbance? Prominent precordial voltage Faster rate but improved repolarization appearance from 09/17/15. Electronically Signed on 09-22-2020 9:29:18 EST by Edi Braxton
== END ==
LOC: M EKG 08:37
PROVIDERS: ATTEND Orthopaedic Surgery
DX: Z01.810 Encounter for preprocedural cardiovascular examination (principal)

== ENCOUNTER 2022-06-14 07:47 | Day surgery (SDC) | payer OTHER ==
[~2022-06-14] VITALS: Ht 172.7 cm; Wt 87.0 kg
[~2022-06-14 07:47] MED LIST changes: +ATOR80TA59 PO; -D31000TA2 PO; +LISI20TA33 PO; +NS 1,000 ML IV ONE; +OMEG10002 PO; +POTA-150 PO; -POTA10TA17 PO; +VITA100093 PO
[2022-06-14] MEDS ORDERED: LIDOCAINE 2% 100MG/5ML SDV (FOR ANES.) As Ordered ONE (09:05)
[2022-06-14] MEDS ORDERED: propofoL 200 MG/20 ML VIAL As Ordered ONE (09:05)
[2022-06-14 09:30] VITALS: BP 110/63
== END 2022-06-14 09:39 | disposition home or self-care (01) ==
LOC: M OPP 07:47
PROVIDERS: ATTEND Internal Medicine Gastroenterology
DX: Z12.11 Encounter for screening for malignant neoplasm of colon (principal); K64.0 First degree hemorrhoids; K57.30 Diverticulosis of large intestine without perforation or abscess without bleeding; Z98.0 Intestinal bypass and anastomosis status; Z53.8 Procedure and treatment not carried out for other reasons; Z79.02 Long term (current) use of antithrombotics/antiplatelets; Z79.899 Other long term (current) drug therapy; E78.00 Pure hypercholesterolemia, unspecified; I10 Essential (primary) hypertension; F32.9 Major depressive disorder, single episode, unspecified; Z90.49 Acquired absence of other specified parts of digestive tract; Z87.19 Personal history of other diseases of the digestive system; Z98.84 Bariatric surgery status

== ENCOUNTER 2023-02-19 20:10 | Inpatient (IN) | payer OTHER ==
[~2023-02-19] VITALS: Ht 180.3 cm; Wt 84.7 kg
[~2023-02-19 20:10] MED LIST changes: -NS 1,000 ML IV ONE
[2023-02-19] MEDS ORDERED: MICR1TAB5 PO (20:21)
[2023-02-19] MEDS ORDERED: ONDANSETRON 4MG 2ML VIAL IV ONE (21:20)
[2023-02-19] MEDS ORDERED: NS 1,000 ML IV ONE (21:20)
[2023-02-19] MEDS ORDERED: MORPHINE 4 MG/ML 1ML VIAL IV ONE (21:20)
[2023-02-19 21:39] LABS: BASO % 0.4 % (0.0-1.0); EOS % 0.1 % (0.0-3.0); HEMATOCRIT 40.6 % (42.0-52.0); HEMOGLOBIN 13.7 g/dl (13.5-17.5); LYMPH # 0.7 10^3/uL (1.5-5.0); LYMPH % 8.1 % (24.0-44.0); MEAN CORPUSCULAR HEMOGLOBIN 28.9 pg (27.0-33.0); MEAN CORPUSCULAR HGB CONC 33.7 g/dl (32.0-36.5); MEAN CORPUSCULAR VOLUME 85.7 fl (80.0-96.0); MONO # 0.3 10^3/uL (0.0-0.8); MONO % 3.6 % (2.0-8.0); NEUTROPHILS # 7.1 10^3/uL (1.5-8.5); NEUTROPHILS % 87.7 % (36.0-66.0); PLATELET COUNT, AUTOMATED 208 10^3/uL (150-450); RED BLOOD COUNT 4.74 10^6/uL (4.30-6.10); WHITE BLOOD COUNT 8.1 10^3/uL (4.0-10.0)
[2023-02-19 22:07] LABS: ALBUMIN 4.4 G/DL (3.2-5.2); BILIRUBIN,DIRECT 0.4 MG/DL (<0.4); TOTAL PROTEIN 7.1 G/DL (5.7-8.2)
[2023-02-19] MEDS ORDERED: CIPROFLOXACIN 400 MG in IV 1 EA IV ONE (23:40)
[2023-02-19] MEDS ORDERED: metroNIDAZOLE 500 MG in IV 1 EA IV ONE (23:40)
[2023-02-19] MEDS ORDERED: B-12100010 PO (23:45)
[2023-02-19] MEDS ORDERED: HOME MED LIST COMPLETE! XX SCH (23:50)
[2023-02-19] MEDS ORDERED: HYDROMORPHONE HCL 0.5 MG/ 0.5 ML SYRINGE IV PRN ×2 (23:55)
[2023-02-20 00:04] VITALS: BP 134/73; TEMP 98.2; O2SAT 97
[2023-02-20 00:16] LABS: RSV AMPLIFICATION NEGATIVE (NEGATIVE)
[2023-02-20] MEDS ORDERED: hydrALAZINE 20MG/ML 1ML VIAL IV PRN (00:45)
[2023-02-20] MEDS: LR 1,000 ML IV SCH ×4 (01:24→23:55)
[2023-02-20 05:24] VITALS: BP 109/68; TEMP 98.1; O2SAT 96
[2023-02-20] MEDS: HEPARIN SOD (PORCINE) 5000UNITS/ML 1ML VIAL/SYRINGE SC SCH ×3 (05:36→21:49)
[2023-02-20 06:00] VITALS: BP 109/68
[2023-02-20 06:26] LABS: BLOOD UREA NITROGEN 9 MG/DL (9-23); CARBON DIOXIDE LEVEL 25 MMOL/L (20-31); CHLORIDE LEVEL 108 MMOL/L (98-107); CREATININE FOR GFR 0.64 MG/DL (0.70-1.30); GLOMERULAR FILTRATION RATE > 60.0 (>49); GLUCOSE, FASTING 87 MG/DL (74-106); POTASSIUM SERUM 3.9 MMOL/L (3.5-5.1); SODIUM LEVEL 139 MMOL/L (136-145)
[2023-02-20] MEDS: metroNIDAZOLE 500 MG in IV 1 EA IV SCH ×2 (09:51→16:24)
[2023-02-20] MEDS: PANTOPRAZOLE 40MG VIAL IV SCH (09:52)
[2023-02-20] MEDS: GASTROGRAFIN SOLUTION 30ML PO SCH ×2 (09:52→10:27)
[2023-02-20] MEDS ORDERED: ISOVUE-370 76% 100ML VIAL As Ordered ONE (10:46)
[2023-02-20] MEDS: CIPROFLOXACIN 400 MG in IV 1 EA IV SCH (13:50)
[2023-02-20 14:00] VITALS: BP 112/68; TEMP 98.6; O2SAT 96
[2023-02-20 14:46] LABS: HEMATOCRIT 35.5 % (42.0-52.0); HEMOGLOBIN 11.8 g/dl (13.5-17.5)
[2023-02-20 19:28] VITALS: BP 110/66; TEMP 98.8; O2SAT 95
[2023-02-21] MEDS: metroNIDAZOLE 500 MG in IV 1 EA IV SCH ×2 (02:11→08:06)
[2023-02-21] MEDS: CIPROFLOXACIN 400 MG in IV 1 EA IV SCH (03:14)
[2023-02-21 05:17] VITALS: BP 129/70; TEMP 98.1; O2SAT 97
[2023-02-21] MEDS: HEPARIN SOD (PORCINE) 5000UNITS/ML 1ML VIAL/SYRINGE SC SCH (05:38)
[2023-02-21 05:42] LABS: HEMOGLOBIN 11.8 g/dl (13.5-17.5); MEAN CORPUSCULAR HEMOGLOBIN 29.4 pg (27.0-33.0); MEAN CORPUSCULAR HGB CONC 33.7 g/dl (32.0-36.5); MEAN CORPUSCULAR VOLUME 87.3 fl (80.0-96.0); PLATELET COUNT, AUTOMATED 171 10^3/uL (150-450); RED BLOOD COUNT 4.01 10^6/uL (4.30-6.10); WHITE BLOOD COUNT 4.4 10^3/uL (4.0-10.0)
[2023-02-21 06:09] LABS: BLOOD UREA NITROGEN 7 MG/DL (9-23); CALCIUM LEVEL 8.3 MG/DL (8.3-10.6); CARBON DIOXIDE LEVEL 26 MMOL/L (20-31); CHLORIDE LEVEL 107 MMOL/L (98-107); CREATININE FOR GFR 0.75 MG/DL (0.70-1.30); GLOMERULAR FILTRATION RATE > 60.0 (>49); GLUCOSE, FASTING 90 MG/DL (74-106); MAGNESIUM LEVEL 1.7 MG/DL (1.8-2.4); PHOSPHORUS LEVEL 3.1 MG/DL (2.4-5.1); SODIUM LEVEL 140 MMOL/L (136-145)
[2023-02-21 08:01] VITALS: BP 129/70
[2023-02-21 08:06] VITALS: BP 129/70
[2023-02-21] MEDS: PANTOPRAZOLE 40MG VIAL IV SCH (08:06)
[2023-02-21] MEDS: LR 1,000 ML IV SCH (08:06)
[2023-02-21] MEDS ORDERED: CIPR500T39 PO (09:08)
[2023-02-21] MEDS ORDERED: METR-265 PO (09:08)
== END 2023-02-21 11:28 | disposition home or self-care (01) | DRG 392 ==
LOC: M ED 20:10 → M ED INP 23:55 → M MSPAV 02-20 00:40
PROVIDERS: ADMIT Internal Medicine; ATTEND Internal Medicine
DX: K52.9 Noninfective gastroenteritis and colitis, unspecified (principal); I10 Essential (primary) hypertension; Z79.899 Other long term (current) drug therapy; K57.30 Diverticulosis of large intestine without perforation or abscess without bleeding; Z87.891 Personal history of nicotine dependence

== ENCOUNTER 2025-03-28 11:32 | Emergency (ER) | payer MEDICARE, OTHER ==
[~2025-03-28] VITALS: Ht 177.8 cm; Wt 80.3 kg
[~2025-03-28 11:32] MED LIST changes: -AMBI5TAB PO; +B-12100010 PO; +CIPR500T39 PO; +METR-265 PO; +MICR1TAB5 PO; -POTA540T PO; +POTA540T5 PO; +ZOLP-532 PO
[2025-03-28] MEDS: LIDOCAINE 2% MDV 20 ML VIAL SC ONE (15:30)
[2025-03-28 16:02] VITALS: BP 152/85; TEMP 96.9; O2SAT 99
== END 2025-03-28 16:03 | disposition home or self-care (01) ==
LOC: M ED 11:32
DX: S61.213A Laceration without foreign body of left middle finger without damage to nail, initial encounter (principal); W31.2XXA Contact with powered woodworking and forming machines, initial encounter; I10 Essential (primary) hypertension; Z79.02 Long term (current) use of antithrombotics/antiplatelets; Z79.2 Long term (current) use of antibiotics; Z79.899 Other long term (current) drug therapy; Y92.9 Unspecified place or not applicable; Y93.89 Activity, other specified; Y99.9 Unspecified external cause status